=== PATIENT | female | born 1990 | race Caucasian/White ===

== ENCOUNTER 2018-05-12 04:03 | Emergency (ER) | payer BC, OTHER ==
[2018-05-12] MEDS ORDERED: IPRATROPIUM-ALBUTEROL 3 ML NEB INHALATION STA (04:18)
--- NOTE | 2018-05-12 04:29 | ED ---
SOB HPI - General Chief Complaint: Shortness of Breath Stated Complaint: SAJAN Time Seen by Provider: 05/12/18 04:17 Source: patient Mode of arrival: ambulatory Limitations: no limitations - History of Present Illness Initial Comments: is a 27-year-old female with a history of asthma who presents to the ER today for evaluation of wheezing and difficulty breathing. Patient reports she' s had nonproductive wheezy cough for approximately 2 days however throughout the night tonight it became progressively worse. Patient states that she currently does not have any medical insurance or income and was concerned about her ability to pay so she tried to stay home and cuff out the wheezing however this morning she began to feel significantly worse and decided to come to the ER. Patient reports she has not had a significant asthma exacerbation for quite some time, she has been seen in an urgent care once in the past year but other than that hasn't had bad asthma since she was a child. She does report that upon moving into her new house 2 years ago she was cleaning her oven and inhaled significant amount of 11 photo mask cleaner which caused a severe reaction and she feels that since that time she has had worse reactive airway problems than before she has a current cigarette smoker. She reports that she used to be a heavier smoker but is now on Wellbutrin and has decreased her smoking only to sick or today. She is not on any estrogen. She is no risk factors for DVT or PE. - Related Data Home Medications Medication Instructions Recorded Confirmed Loratadine [Claritin] 10 mg PO DAILY 05/13/16 05/13/16 guaiFENesin [Mucinex] 600 mg PO Q12H PRN 05/13/16 05/13/16 Previous Rx's Medication Instructions Recorded Sulfamethox-Tmp 800-160Mg [Bactrim 1 each PO Q12HR #20 tab 05/13/16 DS 800-160 mg] Albuterol Inhaler [Ventolin Hfa 1 - 2 puff INHALATION RT-Q6H PRN 05/12/18 Inhaler] #1 inhaler Allergies Allergy/AdvReac Type Severity Reaction Status Date / Time mold AdvReac Itching Verified 05/12/18 04:15 pollen extracts AdvReac Itching Verified 05/12/18 04:15 Review of Systems ROS Statement: Those systems with pertinent positive or pertinent negative responses have been documented in the HPI. ROS Other: All systems not noted in ROS Statement are negative. Past Medical History Past Medical History: Asthma, Fibromyalgia History of Any Multi-Drug Resistant Organisms: None Reported Past Surgical History: Tonsillectomy Past Psychological History: Depression Smoking Status: Current every day smoker Past Alcohol Use History: Occasional Past Drug Use History: Marijuana General Exam - General Exam Comments Initial Comments: Physical Exam GENERAL: Moderate respiratory distress HENT: Normocephalic, Atraumatic. EYES: PERRL, EOMI PULMONARY: Wheezing in all lung arias CARDIOVASCULAR: Tachycardic, regular, warm and well perfused extremities ABDOMEN: Soft and nontender with normal bowel sounds. SKIN: Skin is clear with no lesions or rashes and otherwise unremarkable. : Deferred NEUROLOGIC: Patient is alert and oriented x3. Moving all extremities spontaneously MUSCULOSKELETAL: Normal extremities with adequate strength and full range of motion. No lower extremity swelling or edema. No calf tenderness. PSYCHIATRIC: Normal psychiatric evaluation. Limitations: no limitations Limitations: no limitations Course Vital Signs 05/12/18 05/12/18 05/12/18 04:11 04:23 04:32 Temperature 98.6 F Pulse Rate 112 H 99 Respiratory 20 24 Rate Blood Pressure 119/86 O2 Sat by Pulse 92 L Oximetry 05/12/18 04:37 Temperature Pulse Rate 106 H Respiratory Rate Blood Pressure O2 Sat by Pulse Oximetry Medical Decision Making - Medical Decision Making She was seen and evaluated upon arrival patient was noted to be in moderate respiratory distress with wheezing in all lung arias consistent with asthma exacerbation DuoNeb was ordered Patient with a nonproductive cough, no fever, no concerns for pneumonia Patient received a DuoNeb Patient was reevaluated after DuoNeb, oxygen saturation is 99% on room air, heart rate is 81, patient is in no respiratory distress at this time the patient 's comfortable with the plan for discharge home I discussed with the patient the importance of smoking cessation. Return parameters were discussed all questions pertaining care were answered and patient was discharged home with a prescription for an albuterol MDI inhaler and follow-up with her primary care physician. Disposition Clinical Impression: Asthma with exacerbation Disposition: HOME SELF-CARE Condition: Stable Instructions: Asthma (ED) Prescriptions: Albuterol Inhaler [Ventolin Hfa Inhaler] 1 - 2 puff INHALATION RT-Q6H PRN #1 inhaler PRN Reason: Wheezing Is patient prescribed a controlled substance at d/c from ED?: No Referrals: None,Stated [Primary Care Provider] - 1-2 days
[2018-05-12 05:49] VITALS: BP 118/77; PULSE 74; RESP 19; TEMP 98.1
== END 2018-05-12 05:44 | disposition home or self-care (01) ==
LOC: EC 04:03
DX: J45.901 Unspecified asthma with (acute) exacerbation (principal); R00.0 Tachycardia, unspecified; F32.9 Major depressive disorder, single episode, unspecified; F17.210 Nicotine dependence, cigarettes, uncomplicated; Z91.048 Other nonmedicinal substance allergy status; Z79.899 Other long term (current) drug therapy
CPT/HCPCS: 94640; 99284

== ENCOUNTER 2018-07-08 19:21 | Emergency (ER) | payer OTHER ==
[2018-07-08] MEDS ORDERED: ALBUTEROL NEBULIZED 2.5 MG/3 ML INHALATION STA (19:38)
[2018-07-08] MEDS ORDERED: DEXAMETHASONE SOD PHOSPHATE 10 MG/ML 1 ML VIAL IM STA (19:38)
[2018-07-08] MEDS ORDERED: IPRATROPIUM 0.5 MG/2.5 ML NEBU INHALATION STA (19:38)
--- NOTE | 2018-07-08 19:43 | ED ---
General Adult HPI - General Chief complaint: Shortness of Breath Stated complaint: Asthma attack Time Seen by Provider: 07/08/18 19:37 Source: patient, RN notes reviewed, old records reviewed Mode of arrival: ambulatory Limitations: no limitations - History of Present Illness Initial comments: 27-year-old female presenting for evaluation of cough and dyspnea. Patient has history of asthma, states her symptoms are similar to asthma exacerbation in the past. Patient is a current smoker although she states she quit 2 days prior. She believes her worsening dyspnea is related to smoking cessation. Denies fever or chills. Cough productive of white sputum. No abdominal pain, nausea vomiting. No lower extremity pain or swelling. No history DVT or PE. Patient has had ER visits for asthma in the past, no hospitalization, no intubation. - Related Data Previous Rx's Medication Instructions Recorded Albuterol Inhaler [Ventolin Hfa 1 - 2 puff INHALATION RT-Q6H PRN 05/12/18 Inhaler] #1 inhaler Albuterol Inhaler [Ventolin Hfa 1 - 2 puff INHALATION Q4HR PRN #1 07/08/18 Inhaler] inhaler predniSONE 50 mg PO DAILY #5 tab 07/08/18 Allergies Allergy/AdvReac Type Severity Reaction Status Date / Time mold AdvReac Itching Verified 07/08/18 20:09 pollen extracts AdvReac Itching Verified 07/08/18 20:09 Review of Systems ROS Statement: Those systems with pertinent positive or pertinent negative responses have been documented in the HPI. ROS Other: All systems not noted in ROS Statement are negative. Past Medical History Past Medical History: Asthma, Fibromyalgia History of Any Multi-Drug Resistant Organisms: None Reported Past Surgical History: Tonsillectomy Past Psychological History: Depression Smoking Status: Current every day smoker Past Alcohol Use History: Occasional Past Drug Use History: Marijuana General Exam Limitations: no limitations General appearance: alert, in no apparent distress Head exam: Present: atraumatic, normocephalic Eye exam: Present: normal appearance, PERRL ENT exam: Present: normal exam Neck exam: Present: normal inspection. Absent: tenderness, meningismus Respiratory exam: Present: respiratory distress, wheezes, decreased breath sounds, prolonged expiratory Cardiovascular Exam: Present: regular rate, normal rhythm GI/Abdominal exam: Present: soft. Absent: distended, tenderness Extremities exam: Present: normal inspection, normal capillary refill. Absent: pedal edema, calf tenderness Neurological exam: Present: alert, oriented X3, CN II-XII intact. Absent: motor sensory deficit Skin exam: Present: warm, dry, intact. Absent: cyanosis, diaphoretic Course Vital Signs 07/08/18 07/08/18 07/08/18 19:27 19:38 19:43 Temperature 98.3 F Pulse Rate 93 92 Respiratory 22 24 Rate Blood Pressure 121/81 O2 Sat by Pulse 97 Oximetry 07/08/18 07/08/18 20:06 20:32 Temperature Pulse Rate 98 84 Respiratory 18 Rate Blood Pressure 99/62 O2 Sat by Pulse 96 Oximetry EKG Findings - EKG Comments: EKG Findings:: EKG: Normal sinus rhythm, possible left atrial enlargement, prolonged QT 496, no ST segment elevation, no definitive signs of ischemia ventricular rate of 89, IN interval 132, QRS duration 84, QTC 496 Medical Decision Making - Medical Decision Making 27-year-old history of asthma presents with worsening cough and dyspnea. Patient is currently quitting smoking. She does admit to running out of her albuterol yesterday. Given albuterol, Atrovent, steroids in the emergency department on reevaluation she is feeling much better, she has improved air entry, scattered wheezing. No respiratory distress. She'll be given steroids and refill of her albuterol prescription. Return with worsening or changing symptoms. Disposition Clinical Impression: Asthma with exacerbation Disposition: HOME SELF-CARE Condition: Good Instructions (If sedation given, give patient instructions): Asthma (ED) Prescriptions: Albuterol Inhaler [Ventolin Hfa Inhaler] 1 - 2 puff INHALATION Q4HR PRN #1 inhaler PRN Reason: Shortness Of Breath predniSONE 50 mg PO DAILY #5 tab Is patient prescribed a controlled substance at d/c from ED?: No Referrals: Anuel Mittal MD [Primary Care Provider] - 1-2 days Time of Disposition: 20:55
--- NOTE | 2018-07-08 20:41 | XR ---
EXAMINATION TYPE: XR chest 2V DATE OF EXAM: 07/08/2018 COMPARISON: 05/13/2016 HISTORY: Difficulty breathing TECHNIQUE: Frontal and lateral views of the chest are obtained. FINDINGS: Heart and mediastinum are normal. Lungs are clear. Diaphragm is normal. Bony thorax appear s normal. IMPRESSION: Normal chest. No change.
[2018-07-08 21:26] VITALS: BP 105/63; PULSE 101; RESP 19; TEMP 97.9
== END 2018-07-08 21:25 | disposition home or self-care (01) ==
LOC: EC 19:21
DX: J45.901 Unspecified asthma with (acute) exacerbation (principal); Z76.0 Encounter for issue of repeat prescription; Z91.018 Allergy to other foods; Z87.891 Personal history of nicotine dependence
CPT/HCPCS: 94640; 93005; 71046; 99285; 96372; J1100

== ENCOUNTER → 2019-08-07 | Outpatient (CLI) | payer OTHER ==
--- NOTE | 2019-08-08 06:56 | US ---
EXAMINATION TYPE: US transvaginal DATE OF EXAM: 08/07/2019 COMPARISON: CT 07/24/2010 CLINICAL HISTORY: N92.0 Menorrhagia. TECHNIQUE: . Transvaginal sonographic images of the pelvis were acquired. Date of LMP: Patient states she has been bleeding for 27 days EXAM MEASUREMENTS: Uterus: 4.7 x 2.6 x 3.4 cm Endometrial Stripe: 0.7 cm Right Ovary: 4.7 x 2.0 x 3.3 cm Left Ovary: 4.2 x 1.9 x 2.9 cm 1. Uterus: Anteverted wnl 2. Endometrium: wnl 3. Right Ovary: Multiple follicles visualized 4. Left Ovary: Multiple follicles visualized 5. Bilateral Adnexa: wnl 6. Posterior cul-de-sac: wnl Follicles appearing peripherally oriented with maximum number of 11 follicles counted on a single binta ge. IMPRESSION: Peripherally oriented numerous bilateral follicles. Findings can be seen in polycystic ov harper syndrome or may be physiologic. Correlation with clinical exam and serum laboratory values is r ecommended.
== END | disposition home or self-care (01) ==
LOC: RADUSWWP 15:29
PROVIDERS: ATTEND Family Medicine
DX: N92.0 Excessive and frequent menstruation with regular cycle (principal)
CPT/HCPCS: 76830

== ENCOUNTER 2020-03-31 12:03 | Emergency (ER) | payer OTHER ==
[2020-03-31 12:14] VITALS: BP 100/67; TEMP 98
[2020-03-31] MEDS ORDERED: ALBUTEROL NEBULIZED 2.5 MG/3 ML INHALATION STA (12:30)
[2020-03-31] MEDS ORDERED: IPRATROPIUM 0.5 MG/2.5 ML NEBU INHALATION STA (12:30)
[2020-03-31] MEDS ORDERED: DEXAMETHASONE SOD PHOSPHATE 10 MG/ML 1 ML VIAL IM STA (12:30)
[2020-03-31 12:48] VITALS: RESP 22
--- NOTE | 2020-03-31 13:02 | ED ---
Asthma HPI - General Chief Complaint: Shortness of Breath Stated Complaint: asthma attack Time Seen by Provider: 03/31/20 12:29 Source: patient, RN notes reviewed, old records reviewed Mode of arrival: ambulatory Limitations: no limitations - History of Present Illness Initial Comments: This is a 29-year-old female DF for evaluation patient Dese for evaluation regards to severe shortness breath. Patient has history of asthma, no current pain. Nursing travel history or sick contacts. 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 which she may have been exposed to some sort of fumes of some sort and began having difficulty breathing MD Complaint: "asthma attack", shortness of breath, wheezing -: hour(s) Asthma History: history of frequent attacks Severity: moderate, similar to prior Context: allergen exposure, pet exposure, smoke exposure Associated Symptoms: dry cough Treatments Prior to Arrival: other (None) - Related Data Previous Rx's Medication Instructions Recorded Albuterol Inhaler (Mhu) [Ventolin 1 - 2 puff INHALATION RT-Q6H PRN 05/12/18 Hfa Inhaler (Mhu)] #1 inhaler Albuterol Inhaler (Mhu) [Ventolin 1 - 2 puff INHALATION Q4HR PRN #1 07/08/18 Hfa Inhaler (Mhu)] inhaler predniSONE 50 mg PO DAILY #5 tab 07/08/18 Albuterol Nebulized [Ventolin 2.5 mg INHALATION Q4H PRN #25 nebu 03/31/20 Nebulized] Albuterol Sulfate [Proair Hfa] 1 - 2 puff INHALATION Q4H PRN #1 03/31/20 inhaler predniSONE 50 mg PO DAILY #5 tab 03/31/20 Allergies Allergy/AdvReac Type Severity Reaction Status Date / Time mold AdvReac Itching Verified 03/31/20 12:14 pollen extracts AdvReac Itching Verified 03/31/20 12:14 Review of Systems ROS Statement: Those systems with pertinent positive or pertinent negative responses have been documented in the HPI. ROS Other: All systems not noted in ROS Statement are negative. Past Medical History Past Medical History: Asthma, Fibromyalgia History of Any Multi-Drug Resistant Organisms: None Reported Past Surgical History: Tonsillectomy Past Psychological History: Depression Smoking Status: Former smoker Past Alcohol Use History: Occasional Past Drug Use History: Marijuana General Exam Limitations: no limitations General appearance: alert, in no apparent distress, anxious Head exam: Present: atraumatic, normocephalic, normal inspection Eye exam: Present: normal appearance, PERRL, EOMI. Absent: scleral icterus, conjunctival injection, periorbital swelling ENT exam: Present: normal exam, mucous membranes moist Neck exam: Present: normal inspection. Absent: tenderness, meningismus, lymphadenopathy Respiratory exam: Present: wheezes, decreased breath sounds, prolonged expiratory. Absent: respiratory distress, rales, rhonchi, stridor Cardiovascular Exam: Present: regular rate, normal rhythm, normal heart sounds. Absent: systolic murmur, diastolic murmur, rubs, gallop, clicks GI/Abdominal exam: Present: soft, normal bowel sounds. Absent: distended, tenderness, guarding, rebound, rigid Extremities exam: Present: normal inspection, full ROM, normal capillary refill. Absent: tenderness, pedal edema, joint swelling, calf tenderness Back exam: Present: normal inspection Neurological exam: Present: alert, oriented X3, CN II-XII intact Psychiatric exam: Present: normal affect, normal mood Skin exam: Present: warm, dry, intact, normal color. Absent: rash Course Vital Signs 03/31/20 03/31/20 03/31/20 12:11 12:47 13:03 Temperature 98 F Pulse Rate 79 84 88 Respiratory 18 22 Rate Blood Pressure 100/67 O2 Sat by Pulse 98 Oximetry - Reevaluation(s) Reevaluation #1: 03/31/20 13:42 Medical records reviewed Reevaluation #2: 03/31/20 13:42 On reevaluation patient symptoms are significantly improved Reevaluation #3: 03/31/20 13:42 Patient informed of results, will give refills patient can be discharged Medical Decision Making - Medical Decision Making 29 female DF for evaluation presented today for evaluation regards to severe shortness of breath asthma attack secondary to exposure. At this time patient can be discharged home Disposition Clinical Impression: Asthma with acute exacerbation Disposition: HOME SELF-CARE Condition: Good Instructions (If sedation given, give patient instructions): Asthma (ED) Prescriptions: predniSONE 50 mg PO DAILY #5 tab Albuterol Sulfate [Proair Hfa] 1 - 2 puff INHALATION Q4H PRN #1 inhaler PRN Reason: Shortness Of Breath Albuterol Nebulized [Ventolin Nebulized] 2.5 mg INHALATION Q4H PRN #25 nebu PRN Reason: Shortness Of Breath Is patient prescribed a controlled substance at d/c from ED?: No Referrals: Aunel Mittal MD [Primary Care Provider] - 1-2 days
[2020-03-31] MEDS ORDERED: IPRATROPIUM-ALBUTEROL 3 ML NEB INHALATION STA (13:36)
[2020-03-31 14:33] VITALS: PULSE 86
== END 2020-03-31 14:44 | disposition home or self-care (01) ==
LOC: EC 12:03
DX: J45.901 Unspecified asthma with (acute) exacerbation (principal); Z91.048 Other nonmedicinal substance allergy status
CPT/HCPCS: 94640 ×2; 99283; 96372; J1100

== ENCOUNTER 2020-06-11 00:47 | Inpatient (IN) | payer MEDICAID, OTHER ==
--- NOTE | 2020-06-11 01:21 | ED ---
Psych HPI - General Chief Complaint: Psychiatric Symptoms Stated Complaint: Mental health Time Seen by Provider: 06/11/20 01:20 Source: patient, RN notes reviewed, old records reviewed Mode of arrival: ambulatory Limitations: no limitations - History of Present Illness Initial Comments: This is a 29-year-old female who admits to severe suicidal ideation and depression. Denying current drug or alcohol abuse. Patient states she is does want to kill herself MD Complaint: suicidal ideation, feels depressed -: days(s) Associated Psychiatric Symptoms: depression, suicidal ideation History of same: Yes Quality: constant Improves With: none, medication Associated Symptoms: denies other symptoms Treatments Prior to Arrival: placed on mental health hold - Related Data Previous Rx's Medication Instructions Recorded Albuterol Inhaler (Mhu) [Ventolin 1 - 2 puff INHALATION RT-Q6H PRN 05/12/18 Hfa Inhaler (Mhu)] #1 inhaler Albuterol Inhaler (Mhu) [Ventolin 1 - 2 puff INHALATION Q4HR PRN #1 07/08/18 Hfa Inhaler (Mhu)] inhaler predniSONE 50 mg PO DAILY #5 tab 07/08/18 Albuterol Nebulized [Ventolin 2.5 mg INHALATION Q4H PRN #25 nebu 03/31/20 Nebulized] Albuterol Sulfate [Proair Hfa] 1 - 2 puff INHALATION Q4H PRN #1 03/31/20 inhaler predniSONE 50 mg PO DAILY #5 tab 03/31/20 Allergies Allergy/AdvReac Type Severity Reaction Status Date / Time mold AdvReac Itching Verified 06/11/20 00:55 pollen extracts AdvReac Itching Verified 06/11/20 00:55 Review of Systems ROS Statement: Those systems with pertinent positive or pertinent negative responses have been documented in the HPI. ROS Other: All systems not noted in ROS Statement are negative. Past Medical History Past Medical History: Asthma, Fibromyalgia History of Any Multi-Drug Resistant Organisms: None Reported Past Surgical History: Tonsillectomy Past Psychological History: Depression Smoking Status: Former smoker, Second hand smoke exposure Past Alcohol Use History: Occasional Past Drug Use History: Marijuana General Exam Limitations: no limitations General appearance: alert, in no apparent distress Head exam: Present: atraumatic, normocephalic, normal inspection Eye exam: Present: normal appearance, PERRL, EOMI. Absent: scleral icterus, conjunctival injection, periorbital swelling ENT exam: Present: normal exam, mucous membranes moist Neck exam: Present: normal inspection. Absent: tenderness, meningismus, lymphadenopathy Respiratory exam: Present: normal lung sounds bilaterally. Absent: respiratory distress, wheezes, rales, rhonchi, stridor Cardiovascular Exam: Present: regular rate, normal rhythm, normal heart sounds. Absent: systolic murmur, diastolic murmur, rubs, gallop, clicks GI/Abdominal exam: Present: soft, normal bowel sounds. Absent: distended, tenderness, guarding, rebound, rigid Extremities exam: Present: normal inspection, full ROM, normal capillary refill. Absent: tenderness, pedal edema, joint swelling, calf tenderness Back exam: Present: normal inspection Neurological exam: Present: alert, oriented X3, CN II-XII intact Psychiatric exam: Present: normal affect, normal mood Skin exam: Present: warm, dry, intact, normal color. Absent: rash Course Vital Signs 06/11/20 06/11/20 00:50 03:00 Temperature 98.4 F Pulse Rate 99 88 Respiratory 18 18 Rate Blood Pressure 136/84 110/74 O2 Sat by Pulse 99 98 Oximetry - Reevaluation(s) Reevaluation #1: 06/11/20 01:21 Medical records reviewed Reevaluation #2: 06/11/20 04:39 Medical clear for psychiatric evaluation Medical Decision Making - Medical Decision Making 79 female seen in [facility] here in the emergency department, patient will be admitted for psychiatric evaluation and treatment - Lab Data Lab Results 06/11/20 06/11/20 Range/Units 02:11 03:05 Urine Opiates Screen Not Detected (NotDetected) Ur Oxycodone Screen Not Detected (NotDetected) Urine Methadone Screen Not Detected (NotDetected) Ur Propoxyphene Screen Not Detected (NotDetected) Ur Barbiturates Screen Not Detected (NotDetected) U Tricyclic Antidepress Not Detected (NotDetected) Ur Phencyclidine Scrn Not Detected (NotDetected) Ur Amphetamines Screen Not Detected (NotDetected) U Methamphetamines Scrn Not Detected (NotDetected) U Benzodiazepines Scrn Not Detected (NotDetected) Urine Cocaine Screen Not Detected (NotDetected) U Marijuana (THC) Screen Detected H (NotDetected) Coronavirus (PCR) Not Detected (Not Detectd) Disposition Clinical Impression: Acute psychosis, Depression, Suicidal ideation Disposition: TRANSFER TO PSYCH HOSP/UNIT Condition: Fair Is patient prescribed a controlled substance at d/c from ED?: No
[2020-06-11 02:42] LABS: Amphetamine Screen,Urine Not Detected (NotDetected); Barbiturate Screen,Urine Not Detected (NotDetected); Benzodiazepines Screen,Urine Not Detected (NotDetected); Cocaine Screen,Urine Not Detected (NotDetected); Methadone Screen, Urine Not Detected (NotDetected); Opiate Screen,Urine Not Detected (NotDetected); Oxycodone Screen, Urine Not Detected (NotDetected); Phencyclidine Screen,Urine Not Detected (NotDetected); Tricyclic Antidepressant,Urine Not Detected (NotDetected); Urn Cannabinoid Scrn Detected (NotDetected)
[2020-06-11] MEDS ORDERED: MAG HYDROX/AL HYDROX/SIMETH 30 ML CUP PO PRN (05:25)
[2020-06-11] MEDS ORDERED: MAGNESIUM HYDROXIDE 2,400 MG/10 ML CUP PO PRN (05:25)
[2020-06-11] MEDS ORDERED: ACETAMINOPHEN TAB 325 MG TAB PO PRN (05:25)
[2020-06-11] MEDS ORDERED: LORazepam 1 MG TAB PO PRN (05:25)
[2020-06-11] MEDS ORDERED: ALBUTEROL INHALER 60 PUFF/8 GM INHALER (MHU) INHALATION PRN (05:31)
[2020-06-11] MEDS ORDERED: LORazepam 2 MG/ML INJ IM PRN (05:32)
[2020-06-11] MEDS ORDERED: HALOPERIDOL LACTATE 5 MG/ML 1 ML VIAL IM PRN (05:33)
[2020-06-11] MEDS ORDERED: haloperidoL 5 MG TAB PO PRN (05:33)
[2020-06-11 08:11] LABS: ALT 13 U/L (4-34); AST 18 U/L (14-36); African American GFR (CKD) >90 (>60 ml/min/1.73 sqM); Albumin 4.6 g/dL (3.5-5.0); Alkaline Phosphatase 48 U/L (38-126); Anion Gap 6 mmol/L; Bilirubin, Delta 0.2 mg/dL (0.0-0.2); Bilirubin,Unconjugated 0.1 mg/dL (0.0-1.1); Blood Urea Nitrogen 15 mg/dL (7-17); Calcium 10.1 mg/dL (8.4-10.2); Carbon Dioxide 30 mmol/L (22-30); Chloride 104 mmol/L (98-107); Cholesterol 171 mg/dL (<200); Glucose 101 mg/dL (74-99); HDL Cholesterol 41 mg/dL (40-60); LDL Cholesterol,Calculated 112 mg/dL (0-99); Non-African American GFR(CKD) >90 (>60 ml/min/1.73 sqM); Potassium 4.8 mmol/L (3.5-5.1); Sodium 140 mmol/L (137-145); Total Bilirubin 0.3 mg/dL (0.2-1.3); Total Protein 7.3 g/dL (6.3-8.2); Triglycerides 89 mg/dL (<150)
[2020-06-11 08:34] LABS: Basophils # (A) 0.1 k/uL (0-0.2); Basophils % (A) 0 %; Eosinophils # (A) 0.4 k/uL (0-0.7); Eosinophils % (A) 3 %; HCT 45.6 % (34.0-46.0); HGB 15.1 gm/dL (11.4-16.0); Lymphocytes # (A) 3.7 k/uL (1.0-4.8); Lymphocytes % (A) 29 %; MCHC 33.1 g/dL (31.0-37.0); MCV 96.5 fL (80.0-100.0); Mean Platelet Volume 8.8; Monocytes # (A) 0.5 k/uL (0-1.0); Monocytes % (A) 4 %; Neutrophils # (A) 7.9 k/uL (1.3-7.7); Neutrophils % (A) 62 %; Platelet Count 252 k/uL (150-450); RBC 4.73 m/uL (3.80-5.40); RDW 12.1 % (11.5-15.5); WBC 12.6 k/uL (3.8-10.6)
[2020-06-11] MEDS: NICOTINE 14MG/24HR PATCH TRANSDERM SCH (08:52)
[2020-06-11 09:01] LABS: Appearance,Urine Turbid (Clear); Bacteria,Urine Occasional /hpf; Bilirubin,Urine Negative (Negative); Blood,Urine Small (Negative); Color,Urine Yellow; Glucose,Urine (UA) Negative (Negative); Ketones,Urine Negative (Negative); Leukocyte Esterase,Urine Large (Negative); Mucus,Urine Many /hpf; Nitrite,Urine Negative (Negative); PH, Urine 5.5 (5.0-8.0); Protein,Urine 1+ (Negative); RBC,Urine 17 /hpf (0-5); Specific Gravity,Urine 1.031 (1.001-1.035); Squamous Epithelial Cell,Urine 115 /hpf (0-4); Urobilinogen,Urine <2.0 mg/dL (<2.0); WBC,Urine 21 /hpf (0-5)
[2020-06-11 10:13] VITALS: BMI 23.3
[2020-06-11] MEDS ORDERED: VENLAFAXINE HCL ER 75 MG CAP PO STA (10:53)
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
[2020-06-11] MEDS: hydrOXYzine pamoate 25 MG CAP PO SCH (21:16)
[2020-06-12 06:46] VITALS: RESP 16
[2020-06-12] MEDS: NICOTINE 14MG/24HR PATCH TRANSDERM SCH (08:50)
[2020-06-12] MEDS ORDERED: VENLAFAXINE HCL ER 75 MG CAP PO SCH (09:00)
[2020-06-12] MEDS ORDERED: VENLAFAXINE HCL ER 75 MG CAP PO STA (09:17)
--- NOTE | 2020-06-12 09:40 | P.PN ---
Progress Note - Text Progress Note Date: 06/12/20 Interval History: Patient was seen wandering the hallways and was directable and agreeable to speak with flex o writer operator in the office. Patient expresses that he is feeling better. He continues to endorse chronic suicidal ideation and reported plans on admission but states that these thoughts are fleeting and that the plans would likely not work or that he would not want to go through with them out of fear of pain. The patient is not endorsing any homicidal ideation, intention, and/or plan. He has been adherent with his medications and not reporting any significant side effects at this time. The patient is not reporting any auditory or visual hallucinations. He denies any paranoia or delusions. He continues endorse multiple life stressors that are causing him significant anxiety. The patient as per to clearly concerned about his housing situation as well as the summons for unpaid student tuition. The patient reports that the Vistaril has been very beneficial but is not certain if there has been any benefit from the Effexor yet. Mental Status Exam: General Appearance: Patient appears to be stated age is alert, directable, and attempts to cooperate. Hygiene and grooming appear fair. Patient has hirsutism and facial hair. Patient is not on hormone replacement therapy and has facial hair due to PCOS that is untreated. Behavior: Patient is seated without any agitated behavior. The patient sits cross legged on the chair. Speech: Patient's speech is fluent and nonpressured. Less hyperverbal today. Mood/Affect: Patient reports their mood is slightly anxious, affect is congruent with appropriate range. Suicidality/Homicidality: Patient denies having any homicidal ideation intent or plan. Patient reports chronic suicidal ideation but no intention or plan at this time. Perceptions: Patient denies any visual hallucinations and denies any auditory h allucinations Though content/process: There is no evidence of any delusional thought content and thought process is linear and goal-directed. Memory and concentration: AOX3, grossly intact for the purposes of this session. Can spell "WORLD" backwards Judgment and insight: Fair Assessment Major depressive disorder, recurrent Posttraumatic stress disorder Gender dysphoria Autism spectrum disorder Cannabis dependence Plan: -Patient continues to meet criteria for inpatient psychiatric admission for symptom stabilization and safety. Patient has signed adult voluntary form and medication consent and was placed in patient's chart. -Medications: Increase Effexor XR to 150 mg by mouth every morning for depression/PTSD Vistaril 50 mg by mouth at bedtime for insomnia -When necessary Ativan and Haldol for agitation/aggression. -NRT - nicotine patch -SW on board for discharge planning. Encouraged the patient to participate in milieu.
[2020-06-12] MEDS: hydrOXYzine pamoate 25 MG CAP PO SCH (21:05)
[2020-06-13 07:09] VITALS: BP 100/63; PULSE 67
[2020-06-13] MEDS: NICOTINE 14MG/24HR PATCH TRANSDERM SCH (08:46)
[2020-06-13] MEDS ORDERED: VENLAFAXINE HCL ER 150 MG CAP PO SCH (09:00)
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
[2020-06-13] MEDS ORDERED: diphenhydrAMINE 50 MG CAP PO STA (11:26)
[2020-06-13 13:19] VITALS: TEMP 97.9
== END 2020-06-13 14:47 | disposition home or self-care (01) | DRG 885 ==
LOC: EC 00:47 → 3MHU 04:35
PROVIDERS: ADMIT Psychiatry & Neurology Psychiatry; ATTEND Psychiatry & Neurology Psychiatry
DX: F33.9 Major depressive disorder, recurrent, unspecified (principal); R45.851 Suicidal ideations; F17.200 Nicotine dependence, unspecified, uncomplicated; F43.10 Post-traumatic stress disorder, unspecified; M79.7 Fibromyalgia; Z62.810 Personal history of physical and sexual abuse in childhood; F84.0 Autistic disorder; Z20.828 Contact with and (suspected) exposure to other viral communicable diseases; J45.909 Unspecified asthma, uncomplicated; F12.20 Cannabis dependence, uncomplicated; F64.9 Gender identity disorder, unspecified; L68.0 Hirsutism; G47.00 Insomnia, unspecified; Z91.09 Other allergy status, other than to drugs and biological substances; Z90.49 Acquired absence of other specified parts of digestive tract; Z59.9 Problem related to housing and economic circumstances, unspecified; Z91.410 Personal history of adult physical and sexual abuse; Z91.5 Personal history of self-harm; Z86.59 Personal history of other mental and behavioral disorders
CPT/HCPCS: 80053; 80061; 80306; 81001; 81025; 82075; 82248; 83036; 84443; 85025; 87635; 99285

== ENCOUNTER 2020-10-03 17:31 | Emergency (ER) | payer OTHER ==
[2020-10-03] MEDS ORDERED: IPRATROPIUM-ALBUTEROL 3 ML NEB INHALATION STA (17:54)
--- NOTE | 2020-10-03 18:48 | ED ---
SOB HPI - General Chief Complaint: Shortness of Breath Stated Complaint: Asthma Attack Time Seen by Provider: 10/03/20 17:44 Source: patient, RN notes reviewed Mode of arrival: ambulatory Limitations: no limitations - History of Present Illness Initial Comments: Patient is a 29-year-old female presents to emergency department complaining of asthma attack. She states that she ran out of her inhalers last night during an asthma attack and went to her friend's house where she has a cat that she is ALLERGIC to and noted that the wheezing got worse. She was sitting up in bed in no apparent distress or pain stating that she can feel of a tightness between her shoulder blades starting happen. She was in no other apparent distress or pain while sitting up in bed during the exam interview. She denied any chest pain headache nausea vomiting diarrhea constipation fever fatigue chills. - Related Data Previous Rx's Medication Instructions Recorded Albuterol Inhaler (Mhu) [Ventolin 1 - 2 puff INHALATION Q4HR PRN #1 07/08/18 Hfa Inhaler (Mhu)] inhaler Albuterol Nebulized [Ventolin 2.5 mg INHALATION Q4H PRN #25 nebu 03/31/20 Nebulized] Albuterol Sulfate [Proair Hfa] 1 - 2 puff INHALATION Q4H PRN 30 06/13/20 Days #1 inhaler Nicotine 14Mg/24Hr Patch [Habitrol] 1 patch TRANSDERM DAILY 30 Days 06/13/20 patch Venlafaxine HCl ER [Effexor XR] 150 mg PO DAILY 30 Days cap.er.24h 06/13/20 hydrOXYzine pamoate [Vistaril] 50 mg PO HS 30 Days cap 06/13/20 Allergies Allergy/AdvReac Type Severity Reaction Status Date / Time mold AdvReac Itching Verified 10/03/20 17:34 pollen extracts AdvReac Itching Verified 10/03/20 17:34 Review of Systems ROS Statement: Those systems with pertinent positive or pertinent negative responses have been documented in the HPI. ROS Other: All systems not noted in ROS Statement are negative. Past Medical History Past Medical History: Asthma, Fibromyalgia History of Any Multi-Drug Resistant Organisms: None Reported Past Surgical History: Tonsillectomy Past Psychological History: Depression Smoking Status: Former smoker, Second hand smoke exposure Past Alcohol Use History: Occasional Past Drug Use History: Marijuana General Exam Limitations: no limitations General appearance: alert, in no apparent distress Head exam: Present: atraumatic, normocephalic, normal inspection Eye exam: Present: normal appearance, PERRL, EOMI. Absent: scleral icterus, conjunctival injection, periorbital swelling Neck exam: Present: normal inspection. Absent: tenderness, meningismus, lymphadenopathy Respiratory exam: Present: normal lung sounds bilaterally, wheezes (Bilaterally and middle and lower lobes). Absent: respiratory distress, rales, rhonchi, stridor Cardiovascular Exam: Present: regular rate, normal rhythm, normal heart sounds. Absent: systolic murmur, diastolic murmur, rubs, gallop, clicks GI/Abdominal exam: Present: soft, normal bowel sounds. Absent: distended, tenderness, guarding, rebound, rigid Extremities exam: Present: normal inspection, full ROM, normal capillary refill. Absent: tenderness, pedal edema, joint swelling, calf tenderness Neurological exam: Present: alert, oriented X3, CN II-XII intact Psychiatric exam: Present: normal affect, normal mood Skin exam: Present: warm, dry, intact, normal color. Absent: rash Course Vital Signs 10/03/20 10/03/20 10/03/20 17:32 17:40 19:00 Temperature 98.1 F 98.8 F Pulse Rate 93 80 Respiratory 18 20 16 Rate Blood Pressure 124/79 100/84 O2 Sat by Pulse 100 100 Oximetry 10/03/20 19:12 Temperature Pulse Rate 80 Respiratory Rate Blood Pressure O2 Sat by Pulse Oximetry Medical Decision Making - Medical Decision Making 9-year-old female complaining of asthma attack. 3 mL of DuoNeb, chest x-ray ordered. chest x-ray negative for any acute cardiopulmonary process. Case discussed with Dr. Lee, patient can discharge home. - Radiology Data Radiology results: report reviewed, image reviewed Chest x-ray: No acute cardiopulmonary process. Disposition Clinical Impression: Asthma Disposition: HOME SELF-CARE Condition: Stable Instructions (If sedation given, give patient instructions): Asthma (ED) Additional Instructions: Please return to the Emergency Department if symptoms worsen or any other concerns. Follow-up with primary care in 1-2 days to refill prescriptions for inhalers. Avoid irritants that can cause ALLERGY flareups. Is patient prescribed a controlled substance at d/c from ED?: No Referrals: Anuel Mittal MD [Primary Care Provider] - 1-2 days Time of Disposition: 19:30
[2020-10-03 19:02] VITALS: BP 100/84; PULSE 80; RESP 16; TEMP 98.8
--- NOTE | 2020-10-03 19:25 | XR ---
EXAMINATION TYPE: XR chest 1V portable DATE OF EXAM: 10/03/2020 CLINICAL HISTORY: Shortness of breath. TECHNIQUE: Portable frontal view of the chest. COMPARISON: 07/08/2018 FINDINGS: The cardiomediastinal silhouette is within normal limits for size. Pulmonary vasculature i s normal. There is no focal air space opacity. No pleural effusion. No pneumothorax seen. No acute d isplaced osseous fracture. IMPRESSION: No acute cardiopulmonary process.
== END 2020-10-03 19:46 | disposition home or self-care (01) ==
LOC: EC 17:31
DX: J45.909 Unspecified asthma, uncomplicated (principal); M79.7 Fibromyalgia; F32.9 Major depressive disorder, single episode, unspecified; F12.90 Cannabis use, unspecified, uncomplicated; Z87.891 Personal history of nicotine dependence; Z79.51 Long term (current) use of inhaled steroids; Z77.22 Contact with and (suspected) exposure to environmental tobacco smoke (acute) (chronic)
CPT/HCPCS: 71045; 99285

== ENCOUNTER 2020-12-02 11:05 | Emergency (ER) | payer OTHER ==
[2020-12-02 11:13] VITALS: TEMP 97.7
[2020-12-02] MEDS ORDERED: DEXAMETHASONE SOD PHOSPHATE 10 MG/ML 1 ML VIAL IM STA (12:12)
--- NOTE | 2020-12-02 12:24 | ED ---
SOB HPI - General Chief Complaint: Shortness of Breath Stated Complaint: Asthma Source: patient, EMS, RN notes reviewed Mode of arrival: EMS Limitations: no limitations - History of Present Illness Initial Comments: 30-year-old patient presents to the emergency room complaining of an asthma attack after exposed to citrus today. Patient goes by Luis Enrique and states that he called EMS for an asthma attack even to napping feels much better. Patient is out of albuterol and was told by primary care doctor may take 72 hours to refill. Patient oxygen saturation is 100% respiratory rate of 22 heart rate of 76 at this time. History of asthma and fibromyalgia mood disorders. Patient states was taken off his Singulair due to his mental state he states. Has not been on any maintenance medications for his asthma. MD Complaint: "asthma attack" -: hour(s) (1) Severity scale (1-10): 0 Consistency: now resolved (Given DuoNeb by EMS removed himself from citrus exposure) Known History Of: asthma Associated Symptoms: denies other symptoms Treatments Prior to Arrival: bronchodilator (DuoNeb) - Related Data Home Oxygen Therapy: No Previous Rx's Medication Instructions Recorded Albuterol Inhaler (Mhu) [Ventolin 1 - 2 puff INHALATION Q4HR PRN #1 07/08/18 Hfa Inhaler (Mhu)] inhaler Albuterol Nebulized [Ventolin 2.5 mg INHALATION Q4H PRN #25 nebu 03/31/20 Nebulized] Albuterol Sulfate [Proair Hfa] 1 - 2 puff INHALATION Q4H PRN 30 06/13/20 Days #1 inhaler Nicotine 14Mg/24Hr Patch [Habitrol] 1 patch TRANSDERM DAILY 30 Days 06/13/20 patch Venlafaxine HCl ER [Effexor XR] 150 mg PO DAILY 30 Days cap.er.24h 06/13/20 hydrOXYzine pamoate [Vistaril] 50 mg PO HS 30 Days cap 06/13/20 Albuterol Sulfate [Proair Hfa] 1 - 2 puff INHALATION Q4HR PRN #1 10/03/20 inhaler methylPREDNISolone [Medrol Dose 4 mg PO DIRECTED #1 pack 10/03/20 Pack] Albuterol Inhaler [Ventolin Hfa 2 puff INHALATION Q4HR PRN 30 Days 12/02/20 Inhaler] #1 inhaler predniSONE 50 mg PO DAILY #5 tab 12/02/20 Allergies Allergy/AdvReac Type Severity Reaction Status Date / Time [place] And Derivatives AdvReac Itching Verified 12/02/20 11:14 [[place]] mold AdvReac Itching Verified 10/03/20 17:34 pollen extracts AdvReac Itching Verified 10/03/20 17:34 Review of Systems ROS Statement: Those systems with pertinent positive or pertinent negative responses have been documented in the HPI. ROS Other: All systems not noted in ROS Statement are negative. Past Medical History Past Medical History: Asthma, Fibromyalgia History of Any Multi-Drug Resistant Organisms: None Reported Past Surgical History: Tonsillectomy Past Psychological History: Depression Smoking Status: Former smoker, Second hand smoke exposure Past Alcohol Use History: Occasional Past Drug Use History: Marijuana General Exam Limitations: no limitations General appearance: alert, in no apparent distress, anxious Head exam: Present: atraumatic, normocephalic, normal inspection Eye exam: Present: normal appearance, PERRL, EOMI. Absent: scleral icterus, conjunctival injection, periorbital swelling Pupils: Present: normal accommodation ENT exam: Present: normal exam, normal oropharynx, mucous membranes moist Neck exam: Present: normal inspection, full ROM. Absent: tenderness, meningismus, lymphadenopathy, thyromegaly Respiratory exam: Present: normal lung sounds bilaterally. Absent: respiratory distress, wheezes, rales, rhonchi, stridor, chest wall tenderness, accessory muscle use, decreased breath sounds Cardiovascular Exam: Present: regular rate, normal rhythm, normal heart sounds. Absent: systolic murmur, diastolic murmur, rubs, gallop, clicks GI/Abdominal exam: Present: soft, normal bowel sounds. Absent: distended, tenderness, guarding, rebound, rigid Extremities exam: Present: normal inspection, full ROM, normal capillary refill. Absent: tenderness, pedal edema, joint swelling, calf tenderness Back exam: Present: normal inspection, full ROM. Absent: tenderness, CVA tenderness (R), CVA tenderness (L), muscle spasm, paraspinal tenderness, vertebral tenderness Neurological exam: Present: alert, oriented X3, CN II-XII intact Psychiatric exam: Present: normal mood, anxious Skin exam: Present: warm, dry, intact, normal color, other (Multiple yellow brown bruises to bilateral lower extremities states from recent camping). Absent: rash Course Vital Signs 12/02/20 11:10 Temperature 97.7 F Pulse Rate 76 Respiratory 22 Rate Blood Pressure 103/65 O2 Sat by Pulse 100 Oximetry Medical Decision Making - Medical Decision Making Patient is well-appearing with in no acute distress relieved from asthma attack with DuoNeb by EMS. Patient will be treated with one dose Decadron and discharged home with albuterol inhaler. Oxygen saturation 100% respiratory rate of 22 heart rate of 76 patient is afebrile. Denies any shortness of breath or chest pain. No recent surgeries, no fevers, no calf pain. Patient states that this was an exposure to citrus which exacerbated his asthma but is now resolved. Patient will be prescribed an albuterol inhaler and prednisone for 5 days. Directed to follow up with primary care doctor next week. Return if worsening symptoms or shortness breath chest pain or fevers. Case discussed with Dr Lee. Disposition Clinical Impression: Asthma Disposition: HOME SELF-CARE Instructions (If sedation given, give patient instructions): Asthma (ED) Additional Instructions: Usual albuterol as needed, take the prednisone as prescribed. Follow-up with the primary care doctor for continuation of care and maintenance therapy for your asthma. Return to the emergency room if worsening shortness of breath, chest pain, or fever. Prescriptions: predniSONE 50 mg PO DAILY #5 tab Albuterol Inhaler [Ventolin Hfa Inhaler] 2 puff INHALATION Q4HR PRN 30 Days #1 inhaler PRN Reason: Wheezing Is patient prescribed a controlled substance at d/c from ED?: No Referrals: Anuel Mittal MD [Primary Care Provider] - 1-2 days Time of Disposition: 12:24
[2020-12-02 12:45] VITALS: BP 101/70; PULSE 67; RESP 20
== END 2020-12-02 13:06 | disposition home or self-care (01) ==
LOC: EC 11:05
DX: J45.909 Unspecified asthma, uncomplicated (principal); F32.9 Major depressive disorder, single episode, unspecified; M79.7 Fibromyalgia; F12.90 Cannabis use, unspecified, uncomplicated; Z87.891 Personal history of nicotine dependence; Z77.22 Contact with and (suspected) exposure to environmental tobacco smoke (acute) (chronic); Z79.51 Long term (current) use of inhaled steroids
CPT/HCPCS: 99285; 96372; J1100

== ENCOUNTER 2021-03-06 05:54 | Emergency (ER) | payer OTHER ==
[2021-03-06] MEDS ORDERED: IPRATROPIUM-ALBUTEROL 3 ML NEB INHALATION STA (06:13)
[2021-03-06 06:53] LABS: Basophils % (A) 0 %; Eosinophils # (A) 0.6 k/uL (0-0.7); Eosinophils % (A) 5 %; HCT 41.2 % (39.0-53.0); HGB 13.5 gm/dL (13.0-17.5); Lymphocytes # (A) 4.3 k/uL (1.0-4.8); Lymphocytes % (A) 35 %; MCH 31.5 pg (25.0-35.0); MCHC 32.7 g/dL (31.0-37.0); MCV 96.3 fL (80.0-100.0); Mean Platelet Volume 9.3; Monocytes # (A) 0.5 k/uL (0-1.0); Monocytes % (A) 4 %; Neutrophils # (A) 6.5 k/uL (1.3-7.7); Neutrophils % (A) 54 %; Platelet Count 252 k/uL (150-450); RBC 4.28 m/uL (4.30-5.90); RDW 12.3 % (11.5-15.5); WBC 12.1 k/uL (3.8-10.6)
[2021-03-06 07:04] LABS: Albumin 4.1 g/dL (3.5-5.0); Calcium 9.5 mg/dL (8.4-10.2); Potassium 4.1 mmol/L (3.5-5.1); Total Bilirubin 0.2 mg/dL (0.2-1.3); Total Protein 6.5 g/dL (6.3-8.2)
--- NOTE | 2021-03-06 07:16 | XR ---
EXAMINATION TYPE: XR chest 2V DATE OF EXAM: 03/06/2021 COMPARISON: Chest x-ray 10/03/2020 HISTORY: Difficulty breathing TECHNIQUE: Frontal and lateral views of the chest are obtained. FINDINGS: There is no focal air space opacity, pleural effusion, or pneumothorax seen. The cardiac silhouette size is within normal limits. The osseous structures are intact. IMPRESSION: No acute cardiopulmonary process.
[2021-03-06 07:30] VITALS: BP 108/77; PULSE 72; RESP 18; TEMP 97.5
[2021-03-06] MEDS ORDERED: ALBUTEROL HFA INHALER INHALATION STA (08:07)
--- NOTE | 2021-03-06 08:59 | ED ---
SOB HPI - General Chief Complaint: Shortness of Breath Stated Complaint: SAJAN Time Seen by Provider: 03/06/21 06:07 Source: patient, RN notes reviewed Mode of arrival: ambulatory Limitations: no limitations - History of Present Illness Initial Comments: Patient is a 30-year-old biologic female transitioning the male that presents to the emergency room complaining of an asthma exacerbation. He notes that they ran out of at home medications due to pharmacy and phone issues. They're unable to follow-up with primary care in time to get refills. They note that inhaler and DuoNeb treatments usually make him feel better. Patient was otherwise a well-appearing 30-year-old in no apparent distress or pain. Patient denied any chest pain headache nausea vomiting diarrhea constipation fever fatigue chills. - Related Data Previous Rx's Medication Instructions Recorded Albuterol Inhaler (Mhu) [Ventolin 1 - 2 puff INHALATION Q4HR PRN #1 07/08/18 Hfa Inhaler (Mhu)] inhaler Albuterol Nebulized [Ventolin 2.5 mg INHALATION Q4H PRN #25 nebu 03/31/20 Nebulized] Albuterol Sulfate [Proair Hfa] 1 - 2 puff INHALATION Q4H PRN 30 06/13/20 Days #1 inhaler Nicotine 14Mg/24Hr Patch [Habitrol] 1 patch TRANSDERM DAILY 30 Days 06/13/20 patch Venlafaxine HCl ER [Effexor XR] 150 mg PO DAILY 30 Days cap.er.24h 06/13/20 hydrOXYzine pamoate [Vistaril] 50 mg PO HS 30 Days cap 06/13/20 Albuterol Sulfate [Proair Hfa] 1 - 2 puff INHALATION Q4HR PRN #1 10/03/20 inhaler methylPREDNISolone [Medrol Dose 4 mg PO DIRECTED #1 pack 10/03/20 Pack] Albuterol Inhaler [Ventolin Hfa 2 puff INHALATION Q4HR PRN 30 Days 12/02/20 Inhaler] #1 inhaler predniSONE 50 mg PO DAILY #5 tab 12/02/20 Albuterol Sulfate [Albuterol 2 puff PO Q6H #8.5 gm 03/06/21 Sulfate Hfa] Allergies Allergy/AdvReac Type Severity Reaction Status Date / Time [place] And Derivatives AdvReac Itching Verified 03/06/21 06:06 [[place]] mold AdvReac Itching Verified 03/06/21 06:06 pollen extracts AdvReac Itching Verified 03/06/21 06:06 Review of Systems ROS Statement: Those systems with pertinent positive or pertinent negative responses have been documented in the HPI. ROS Other: All systems not noted in ROS Statement are negative. Past Medical History Past Medical History: Asthma, Fibromyalgia History of Any Multi-Drug Resistant Organisms: None Reported Past Surgical History: Tonsillectomy Past Psychological History: Depression Smoking Status: Former smoker, Second hand smoke exposure Past Alcohol Use History: Occasional Past Drug Use History: Marijuana General Exam Limitations: no limitations General appearance: alert, in no apparent distress Head exam: Present: atraumatic, normocephalic, normal inspection Eye exam: Present: normal appearance, PERRL, EOMI. Absent: scleral icterus, conjunctival injection, periorbital swelling ENT exam: Present: normal exam, mucous membranes moist Neck exam: Present: normal inspection Respiratory exam: Present: normal lung sounds bilaterally. Absent: respiratory distress, wheezes, rales, rhonchi, stridor Cardiovascular Exam: Present: regular rate, normal rhythm, normal heart sounds. Absent: systolic murmur, diastolic murmur, rubs, gallop, clicks GI/Abdominal exam: Present: soft, normal bowel sounds. Absent: distended, tenderness, guarding, rebound, rigid Extremities exam: Present: normal inspection, full ROM, normal capillary refill. Absent: tenderness, pedal edema, joint swelling, calf tenderness Neurological exam: Present: alert, oriented X3 Psychiatric exam: Present: normal affect, normal mood Skin exam: Present: warm, dry, intact, normal color. Absent: rash Course Vital Signs 03/06/21 03/06/21 03/06/21 06:03 07:28 08:51 Temperature 98.0 F 97.5 F Pulse Rate 92 72 Respiratory 20 18 Rate Blood Pressure 112/76 108/77 O2 Sat by Pulse 96 96 98 Oximetry Medical Decision Making - Medical Decision Making 30-year-old biologic female complaining of shortness of breath, history of asthma. Basic labs, chest x-ray, Covid test ordered. Labs unremarkable Covid test negative. Chest x-ray no acute card up on her process. Case discussed with Dr. Seymour, patient discharge home with follow-up primary care. Inhalers at the patient's pharmacy. - Lab Data Result diagrams: 03/06/21 06:27 03/06/21 06:27 Lab Results 03/06/21 03/06/21 03/06/21 Range/Units 06:27 06:27 06:27 WBC 12.1 H (3.8-10.6) k/uL RBC 4.28 L (4.30-5.90) m/uL Hgb 13.5 (13.0-17.5) gm/dL Hct 41.2 (39.0-53.0) % MCV 96.3 (80.0-100.0) fL MCH 31.5 (25.0-35.0) pg MCHC 32.7 (31.0-37.0) g/dL RDW 12.3 (11.5-15.5) % Plt Count 252 (150-450) k/uL MPV 9.3 Neutrophils % 54 % Lymphocytes % 35 % Monocytes % 4 % Eosinophils % 5 % Basophils % 0 % Neutrophils # 6.5 (1.3-7.7) k/uL Lymphocytes # 4.3 (1.0-4.8) k/uL Monocytes # 0.5 (0-1.0) k/uL Eosinophils # 0.6 (0-0.7) k/uL Basophils # 0.0 (0-0.2) k/uL Sodium 139 (137-145) mmol/L Potassium 4.1 (3.5-5.1) mmol/L Chloride 106 (98-107) mmol/L Carbon Dioxide 23 (22-30) mmol/L Anion Gap 10 mmol/L BUN 12 (9-20) mg/dL Creatinine 0.56 L (0.66-1.25) mg/dL Est GFR (CKD-EPI)AfAm 163 (>60 ml/min/1.73 sqM) Est GFR (CKD-EPI)NonAf 141 (>60 ml/min/1.73 sqM) Glucose 107 H (74-99) mg/dL Plasma Lactic Acid Kaden 1.4 (0.7-2.0) mmol/L Calcium 9.5 (8.4-10.2) mg/dL Total Bilirubin 0.2 (0.2-1.3) mg/dL AST 29 (17-59) U/L ALT 21 (4-49) U/L Alkaline Phosphatase 44 (38-126) U/L Total Protein 6.5 (6.3-8.2) g/dL Albumin 4.1 (3.5-5.0) g/dL Coronavirus (PCR) (Not Detectd) 03/06/21 Range/Units 06:27 WBC (3.8-10.6) k/uL RBC (4.30-5.90) m/uL Hgb (13.0-17.5) gm/dL Hct (39.0-53.0) % MCV (80.0-100.0) fL MCH (25.0-35.0) pg MCHC (31.0-37.0) g/dL RDW (11.5-15.5) % Plt Count (150-450) k/uL MPV Neutrophils % % Lymphocytes % % Monocytes % % Eosinophils % % Basophils % % Neutrophils # (1.3-7.7) k/uL Lymphocytes # (1.0-4.8) k/uL Monocytes # (0-1.0) k/uL Eosinophils # (0-0.7) k/uL Basophils # (0-0.2) k/uL Sodium (137-145) mmol/L Potassium (3.5-5.1) mmol/L Chloride (98-107) mmol/L Carbon Dioxide (22-30) mmol/L Anion Gap mmol/L BUN (9-20) mg/dL Creatinine (0.66-1.25) mg/dL Est GFR (CKD-EPI)AfAm (>60 ml/min/1.73 sqM) Est GFR (CKD-EPI)NonAf (>60 ml/min/1.73 sqM) Glucose (74-99) mg/dL Plasma Lactic Acid Kaden (0.7-2.0) mmol/L Calcium (8.4-10.2) mg/dL Total Bilirubin (0.2-1.3) mg/dL AST (17-59) U/L ALT (4-49) U/L Alkaline Phosphatase (38-126) U/L Total Protein (6.3-8.2) g/dL Albumin (3.5-5.0) g/dL Coronavirus (PCR) Not Detected (Not Detectd) - Radiology Data Radiology results: report reviewed, image reviewed Chest x-ray: No acute cardiopulmonary process. Disposition Clinical Impression: Asthma Disposition: HOME SELF-CARE Condition: Stable Instructions (If sedation given, give patient instructions): Asthma (ED) Additional Instructions: Please return to the Emergency Department if symptoms worsen or any other concerns. Follow-up with primary care 1-2 days. Use inhalers as prescribed. Prescriptions: Albuterol Sulfate [Albuterol Sulfate Hfa] 2 puff PO Q6H #8.5 gm Is patient prescribed a controlled substance at d/c from ED?: No Referrals: Anuel Mittal MD [Primary Care Provider] - 1-2 days Time of Disposition: 08:59
== END 2021-03-06 09:18 | disposition home or self-care (01) ==
LOC: EC 05:54
DX: J45.901 Unspecified asthma with (acute) exacerbation (principal); F32.9 Major depressive disorder, single episode, unspecified; F12.90 Cannabis use, unspecified, uncomplicated; Z20.822 Contact with and (suspected) exposure to COVID-19; Z90.89 Acquired absence of other organs; Z87.891 Personal history of nicotine dependence
CPT/HCPCS: 36415; 71046; 80053; 83605; 85025; 87635; 94640; 99285

== ENCOUNTER 2021-10-30 22:10 | Observation (INO) | payer OTHER ==
--- NOTE | 2021-10-30 22:29 | ED ---
Psych HPI - General Chief Complaint: Psychiatric Symptoms Stated Complaint: Mental Health Time Seen by Provider: 10/30/21 22:14 Source: patient, EMS, RN notes reviewed, old records reviewed Mode of arrival: EMS Limitations: no limitations - History of Present Illness Initial Comments: This is a 30-year-old female to the ER for evaluation. Patient is engender transition. Patient coming in for severe depression suicidal thoughts patient cranial currently a low triangle with roommates and is causing significant stress in her life MD Complaint: suicidal ideation, feels depressed, altered mental status -: days(s) Associated Psychiatric Symptoms: depression, suicidal ideation, racing thoughts Quality: constant, getting worse Improves With: none Worsens With: none Context: not taking psychiatric medications, significant life stressor Associated Symptoms: denies other symptoms Treatments Prior to Arrival: placed on mental health hold If Self Harm: admits thoughts of self harm - Related Data Previous Rx's Medication Instructions Recorded Albuterol Inhaler (Mhu) [Ventolin 1 - 2 puff INHALATION Q4HR PRN #1 07/08/18 Hfa Inhaler (Mhu)] inhaler Albuterol Nebulized [Ventolin 2.5 mg INHALATION Q4H PRN #25 nebu 03/31/20 Nebulized] Albuterol Sulfate [Proair Hfa] 1 - 2 puff INHALATION Q4H PRN 30 06/13/20 Days #1 inhaler Nicotine 14Mg/24Hr Patch [Habitrol] 1 patch TRANSDERM DAILY 30 Days 06/13/20 patch Venlafaxine HCl ER [Effexor XR] 150 mg PO DAILY 30 Days cap.er.24h 06/13/20 hydrOXYzine pamoate [Vistaril] 50 mg PO HS 30 Days cap 06/13/20 Albuterol Sulfate [Proair Hfa] 1 - 2 puff INHALATION Q4HR PRN #1 10/03/20 inhaler methylPREDNISolone [Medrol Dose 4 mg PO DIRECTED #1 pack 10/03/20 Pack] Albuterol Inhaler [Ventolin Hfa 2 puff INHALATION Q4HR PRN 30 Days 12/02/20 Inhaler] #1 inhaler predniSONE 50 mg PO DAILY #5 tab 12/02/20 Albuterol Sulfate [Albuterol 2 puff PO Q6H #8.5 gm 03/06/21 Sulfate Hfa] Allergies Allergy/AdvReac Type Severity Reaction Status Date / Time [place] And Derivatives AdvReac Itching Verified 10/28/21 01:50 [[place]] mold AdvReac Itching Verified 10/28/21 01:50 pollen extracts AdvReac Itching Verified 10/28/21 01:50 Review of Systems ROS Statement: Those systems with pertinent positive or pertinent negative responses have been documented in the HPI. ROS Other: All systems not noted in ROS Statement are negative. Past Medical History Past Medical History: Asthma, Fibromyalgia History of Any Multi-Drug Resistant Organisms: None Reported Past Surgical History: Tonsillectomy Past Psychological History: Depression Smoking Status: Former smoker, Second hand smoke exposure, [place] Past Alcohol Use History: Occasional Past Drug Use History: Marijuana General Exam General appearance: alert, in no apparent distress Head exam: Present: atraumatic, normocephalic, normal inspection Eye exam: Present: normal appearance, PERRL, EOMI. Absent: scleral icterus, conjunctival injection, periorbital swelling ENT exam: Present: normal exam, mucous membranes moist Neck exam: Present: normal inspection. Absent: tenderness, meningismus, lymphadenopathy Respiratory exam: Present: normal lung sounds bilaterally. Absent: respiratory distress, wheezes, rales, rhonchi, stridor Cardiovascular Exam: Present: regular rate, normal rhythm, normal heart sounds. Absent: systolic murmur, diastolic murmur, rubs, gallop, clicks GI/Abdominal exam: Present: soft, normal bowel sounds. Absent: distended, tenderness, guarding, rebound, rigid Extremities exam: Present: normal inspection, full ROM, normal capillary refill. Absent: tenderness, pedal edema, joint swelling, calf tenderness Back exam: Present: normal inspection Neurological exam: Present: alert, oriented X3, CN II-XII intact Psychiatric exam: Present: normal affect, normal mood Skin exam: Present: warm, dry, intact, normal color. Absent: rash Course Vital Signs 10/30/21 22:12 Temperature 99.9 F Pulse Rate 101 Respiratory 20 Rate Blood Pressure 114/83 O2 Sat by Pulse 95 Oximetry - Reevaluation(s) Reevaluation #1: 10/31/21 01:48 Medical record is reviewed Reevaluation #2: 10/31/21 01:48 Medical clear for psychiatric evaluation Reevaluation #3: 10/31/21 01:48 Patient does have positive coronavirus Medical Decision Making - Medical Decision Making 30 year coming in for coronavirus, patient will be admitted for coronavirus but mainly for suicidal ideation and psychiatric evaluation and treatment - Lab Data Lab Results 10/31/21 Range/Units 01:13 Coronavirus (PCR) Detected A (Not Detectd) Disposition Clinical Impression: Major depressive disorder, PTSD (post-traumatic stress disorder), Acute psychosis, Gender dysphoria, Suicidal ideation Disposition: ADMITTED IP TO THIS HOSP Condition: Fair Is patient prescribed a controlled substance at d/c from ED?: No Referrals: Anuel Mittal MD [Primary Care Provider] - 1-2 days
[2021-10-30] MEDS ORDERED: ACETAMINOPHEN TAB 500 MG TAB PO STA (23:09)
[2021-10-31] MEDS ORDERED: NALOXONE 0.4 MG/ML 1 ML VIAL IV PRN (01:49)
[2021-10-31] MEDS ORDERED: LORazepam 2 MG/ML INJ IV PRN (01:49)
[2021-10-31 02:21] LABS: Basophils # (A) 0.1 k/uL (0-0.2); Basophils % (A) 1 %; Eosinophils # (A) 0.2 k/uL (0-0.7); Eosinophils % (A) 2 %; HGB 14.2 gm/dL (13.0-17.5); Lymphocytes # (A) 3.6 k/uL (1.0-4.8); Lymphocytes % (A) 32 %; MCH 30.8 pg (25.0-35.0); MCHC 32.4 g/dL (31.0-37.0); MCV 95.3 fL (80.0-100.0); Mean Platelet Volume 8.9; Monocytes # (A) 0.4 k/uL (0-1.0); Monocytes % (A) 3 %; Neutrophils # (A) 6.9 k/uL (1.3-7.7); Neutrophils % (A) 62 %; Platelet Count 283 k/uL (150-450); RBC 4.61 m/uL (4.30-5.90); RDW 12.2 % (11.5-15.5); WBC 11.3 k/uL (3.8-10.6)
[2021-10-31 02:38] LABS: Amphetamine Screen,Urine Not Detected (NotDetected); Barbiturate Screen,Urine Not Detected (NotDetected); Benzodiazepines Screen,Urine Not Detected (NotDetected); Cocaine Screen,Urine Not Detected (NotDetected); Methadone Screen, Urine Not Detected (NotDetected); Opiate Screen,Urine Not Detected (NotDetected); Oxycodone Screen, Urine Not Detected (NotDetected); Phencyclidine Screen,Urine Not Detected (NotDetected); Tricyclic Antidepressant,Urine Not Detected (NotDetected); Urn Cannabinoid Scrn Detected (NotDetected)
[2021-10-31 02:42] LABS: Acetaminophen <10.0 ug/mL; African American GFR (CKD) 152 (>60 ml/min/1.73 sqM); Alcohol <10 mg/dL; Anion Gap 10 mmol/L; Blood Urea Nitrogen 6 mg/dL (9-20); Calcium 9.5 mg/dL (8.4-10.2); Carbon Dioxide 24 mmol/L (22-30); Chloride 106 mmol/L (98-107); Glucose 108 mg/dL (74-99); Non-African American GFR(CKD) 132 (>60 ml/min/1.73 sqM); Potassium 4.3 mmol/L (3.5-5.1); Salicylate <1.0 mg/dL; Sodium 140 mmol/L (137-145)
[2021-10-31] MEDS ORDERED: ALBUTEROL NEBULIZED 2.5 MG/3 ML INHALATION PRN (03:38)
[2021-10-31] MEDS ORDERED: ALBUTEROL 90 MCG INHALATION PRN (03:38)
--- NOTE | 2021-10-31 03:44 | P.HPIM ---
History of Present Illness H&P Date: 10/31/21 Chief Complaint: Suicidal ideation 30-year-old going through gender transition with history of asthma Patient comes in with suicidal ideation. Reports suicidal thoughts since age of 10 due to social stressors. Since childhood Patient has been exposed to confirmed cases of Covid about 2 weeks ago started having symptoms about 10 days ago and tested positive with a home kit about a week ago. Patient symptoms consist of chills body aches diarrhea and sore throat. Patient reports chronic cough due to exposure to smoke from roommates who are heavy smokers. Otherwise denies any GI bleeding denies any nausea vomiting abdominal pain changes in urinary habits Review of Systems Pertinent positives as noted in HPI. All other systems were reviewed and are negative Past Medical History Past Medical History: Asthma, Fibromyalgia History of Any Multi-Drug Resistant Organisms: None Reported Past Surgical History: Tonsillectomy Past Psychological History: Depression Smoking Status: Former smoker, Second hand smoke exposure, [place] Past Alcohol Use History: Occasional Past Drug Use History: Marijuana - Past Family History Family Family Medical History: No Reported History Medications and Allergies Home Medications Medication Instructions Recorded Confirmed Type Albuterol Inhaler (Mhu) [Ventolin 1 - 2 puff INHALATION Q4HR PRN #1 07/08/18 Rx Hfa Inhaler (Mhu)] inhaler Albuterol Nebulized [Ventolin 2.5 mg INHALATION Q4H PRN #25 nebu 03/31/20 Rx Nebulized] Albuterol Sulfate [Proair Hfa] 1 - 2 puff INHALATION Q4H PRN 30 06/13/20 Rx Days #1 inhaler Nicotine 14Mg/24Hr Patch [Habitrol] 1 patch TRANSDERM DAILY 30 Days 06/13/20 Rx patch Venlafaxine HCl ER [Effexor XR] 150 mg PO DAILY 30 Days cap.er.24h 06/13/20 Rx hydrOXYzine pamoate [Vistaril] 50 mg PO HS 30 Days cap 06/13/20 Rx Albuterol Sulfate [Proair Hfa] 1 - 2 puff INHALATION Q4HR PRN #1 10/03/20 Rx inhaler methylPREDNISolone [Medrol Dose 4 mg PO DIRECTED #1 pack 10/03/20 Rx Pack] Albuterol Inhaler [Ventolin Hfa 2 puff INHALATION Q4HR PRN 30 Days 12/02/20 Rx Inhaler] #1 inhaler predniSONE 50 mg PO DAILY #5 tab 12/02/20 Rx Albuterol Sulfate [Albuterol 2 puff PO Q6H #8.5 gm 03/06/21 Rx Sulfate Hfa] Allergies Allergy/AdvReac Type Severity Reaction Status Date / Time [place] And Derivatives AdvReac Itching Verified 10/28/21 01:50 [[place]] mold AdvReac Itching Verified 10/28/21 01:50 pollen extracts AdvReac Itching Verified 10/28/21 01:50 Physical Exam Vitals: Vital Signs Temp Pulse Resp BP Pulse Ox 10/31/21 01:59 98.6 F 10/30/21 22:12 99.9 F 101 20 114/83 95 Intake and Output 10/30/21 10/30/21 10/31/21 14:59 22:59 06:59 Other: Weight 66.224 kg Constitutional: No acute distress, conversant, pleasant Eyes: Anicteric sclerae, moist conjunctiva, Pupils equal round reactive to light ENMT: NC/AT Oropharynx clear, no erythema, or exudates Neck: Supple, FROM, no masses, or JVD No carotid bruits No thyromegaly Lungs: Clear to auscultation Clear to percussion Normal respiratory effort, no accessory muscle use Cardiovascular: Heart regular in rate and rhythm, No murmurs, gallops, or rubs No peripheral edema Abdominal: Soft Nontender, no guarding, rebound or rigidity Abdomen moving with respiration Normoactive bowel sounds No hepatomegaly, No splenomegaly No palpable mass No abdominal wall hernia noted Skin: Normal temperature, tone, texture, turgor No induration No subcutaneous nodules No rash, lesions No ulcers Extremities: No digital cyanosis No clubbing Pedal pulses intact and symmetrical Radial pulses intact and symmetrical No calf tenderness Psychiatric: Alert and oriented to person, place and time Appropriate affect fair judgement Neuro Muscles Strength 5/5 in all 4 extremities Sensation to light touch grossly present throughout Cranial nerves II-XII grossly intact No focal sensory deficits Lymphatics: no palpable cervical or supraclavicular , or inguinal lymph nodes Results CBC & Chem 7: 10/31/21 01:59 10/31/21 01:59 Labs: Abnormal Lab Results - Last 24 Hours (Table) 10/31/21 10/31/21 10/31/21 Range/Units 01:13 01:59 01:59 WBC 11.3 H (3.8-10.6) k/uL BUN (9-20) mg/dL Glucose (74-99) mg/dL U Marijuana (THC) Screen Detected H (NotDetected) Coronavirus (PCR) Detected A (Not Detectd) 10/31/21 Range/Units 01:59 WBC (3.8-10.6) k/uL BUN 6 L (9-20) mg/dL Glucose 108 H (74-99) mg/dL U Marijuana (THC) Screen (NotDetected) Coronavirus (PCR) (Not Detectd) Assessment and Plan Assessment: Depression and suicidal ideation Psych consultation Suicide precautions Bedside sitter for safety Covid positive Contact and droplet precautions Somatic controlled Loperamide for diarrhea History of asthma currently compensated Albuterol inhaler pRN for wheezing DVT prophylaxis Lovenox Full code Patient will stay less than 2 midnights
[2021-10-31] MEDS: ALBUTEROL HFA INHALER INHALATION PRN ×4 (07:09→21:03)
[2021-10-31] MEDS: ENOXAPARIN 40 MG/0.4 ML SYRINGE SQ SCH (08:07)
[2021-10-31] MEDS: LOPERAMIDE 2 MG CAP PO PRN (12:48)
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
--- NOTE | 2021-10-31 18:21 | P.PN ---
Subjective Progress Note Date: 10/31/21 (delayed charting seen at 1130 ) Principal diagnosis: depression This is a 30-year-old chronic female who identifies as male gender with history of chronic left shoulder pain, asthma, fibromyalgia, and autism spectrum disorder per the patient who was petitioned due to suicidal ideation. Patient was found to be covid positive and was subsequently admitted to the medical unit. Excoriation seen and examined at bedside. He does not want to talk about his mental health disorder. He reports that he had exposure 12 days ago 20 no Covid positive patient. He then developed symptoms 10 days ago on 10/21/21 and tested positive on a rapid antigen test. He has been fever free since admission at less than 100.4. Initially he was having significant amount of muscle aches, fevers, and chills. As well as diarrhea. The BEEN improving for the last several days. He does not want to take a probiotic as always "makes him worse". General: non toxic, no distress, appears at stated age Derm: warm, dry Head: atraumatic, normocephalic, symmetric Eyes: EOMI, no lid lag, anicteric sclera Mouth: no lip lesion, mucus membranes moist Cardiovascular: S1S2 reg, no murmur, positive posterior tibial pulse bilateral, Lungs: CTA bilateral, no rhonchi, no rales , no accessory muscle use Abdominal: soft, nontender to palpation, no guarding, no appreciable organomegaly Ext: no gross muscle atrophy, no edema, no contractures Neuro: CN II-XI grossly intact, no focal neuro deficits Psych: Alert, oriented, appropriate affect Assessment/plan: COVID-19 -Continue with supportive care -Imodium -Patient will be able to come out of Covid isolation on 11/01 after 10 days with improvement for over 3 days with 24 hours fever free. Depression, severe Cluster B personality disorder Cannabis use disorder Posttraumatic stress disorder -Transfer to psych in a.m. when patient is able to be removed from Covid Isolation Anticipate transfer to psych in a.m. if remains fever free. Objective - Vital Signs Vital signs: Vital Signs Temp 98.5 F 10/31/21 17:44 Pulse 75 10/31/21 17:44 Resp 18 10/31/21 17:44 BP 112/73 10/31/21 17:44 Pulse Ox 96 10/31/21 17:44 Intake & Output 10/30/21 10/31/21 10/31/21 18:59 06:59 18:59 Output Total 300 Balance -300 Weight 66.224 kg Output: Urine 300 Other: # Voids 1 9 # Bowel Movements 0 3 - Labs CBC & Chem 7: 10/31/21 01:59 10/31/21 01:59 Labs: Abnormal Lab Results - Last 24 Hours (Table) 10/31/21 10/31/21 10/31/21 Range/Units 01:13 01:59 01:59 WBC 11.3 H (3.8-10.6) k/uL BUN (9-20) mg/dL Glucose (74-99) mg/dL U Marijuana (THC) Screen Detected H (NotDetected) Coronavirus (PCR) Detected A (Not Detectd) 10/31/21 Range/Units 01:59 WBC (3.8-10.6) k/uL BUN 6 L (9-20) mg/dL Glucose 108 H (74-99) mg/dL U Marijuana (THC) Screen (NotDetected) Coronavirus (PCR) (Not Detectd)
[2021-10-31] MEDS: hydrOXYzine pamoate 25 MG CAP PO SCH (19:55)
[2021-10-31] MEDS: TOPIRAMATE 25 MG TAB PO SCH (19:55)
[2021-10-31] MEDS: BENZOCAINE/MENTHOL LOZENG 1 EACH LOZENGE MUCOUS MEM PRN (20:41)
[2021-11-01] MEDS: LOPERAMIDE 2 MG CAP PO PRN (02:31)
[2021-11-01] MEDS: ALBUTEROL HFA INHALER INHALATION PRN ×4 (09:12→20:14)
--- NOTE | 2021-11-01 09:21 | P.DS ---
Providers Date of admission: 10/31/21 01:46 Expected date of discharge: 11/01/21 Attending physician: Nicole Matos MD Consults: 10/31/21 10:52 Consult Physician Routine Consulting Provider: Isaac Brooks Consult Reason/Comments: suicidal ideation Do you want consulting provider notified?: Yes Primary care physician: Anuel Mittal MD Hospital Course: Discharge Diagnosis: COVID 19 URI Diarrhea related to above, resolved Major depressive disorder, recurrent, severe Posttraumatic stress disorder Cluster B personality disorder Cannabis use disorder Nicotine dependency Hospital Course: This is a 30-year-old gentic female who identifies as male gender with history of chronic left shoulder pain, asthma, fibromyalgia, and autism spectrum disorder per the patient who was petitioned due to suicidal ideation. Patient was found to be covid positive and was subsequently admitted to the medical unit. He was seen by psychiatry who recommended inpatient treatment. On 11/01/20 the patient is 10 days from diagnosis of COVID, he has been fever free for over 72 hours and has improvement in symptoms. Covera and isolation can be discontinued. Patient is medically optimized for discharge the mental health unit. Patient seen and examined at bedside. Reports that he is feeling well and rested. He is no longer having as much diarrhea and tolerating diet well this morning. Vital signs reviewed and stable. General: non toxic, no distress, appears at stated age Derm: warm, dry Head: atraumatic, normocephalic, symmetric Eyes: EOMI, no lid lag, anicteric sclera Mouth: no lip lesion, mucus membranes moist Cardiovascular: S1S2 reg, no murmur, positive posterior tibial pulse bilateral, Lungs: CTA bilateral, no rhonchi, no rales , no accessory muscle use Abdominal: soft, nontender to palpation, no guarding, no appreciable organomegaly Ext: no gross muscle atrophy, no edema, no contractures Neuro: CN II-XI grossly intact, no focal neuro deficits Psych: Alert, oriented, appropriate affect A total of 25 minutes of time were spent preparing this complex discharge summary . Patient Condition at Discharge: Fair Plan - Discharge Summary Discharge Rx Participant: Yes New Discharge Prescriptions: No Action Ascorbic Acid [Vitamin C] 500 mg PO DAILY Discharge Medication List Ascorbic Acid [Vitamin C] 500 mg PO DAILY 10/31/21 [History] Follow up Appointment(s)/Referral(s): Anuel Mittal MD [Primary Care Provider] - 1-2 days
[2021-11-01] MEDS: ENOXAPARIN 40 MG/0.4 ML SYRINGE SQ SCH (10:00)
[2021-11-01] MEDS: DESVENLAFAXINE SUCCINATE 50 MG TAB.ER.24H PO SCH (10:00)
[2021-11-01] MEDS: NICOTINE 7MG/24HR PATCH TRANSDERM SCH (10:00)
[2021-11-01] MEDS: hydrOXYzine pamoate 25 MG CAP PO SCH (20:32)
[2021-11-01] MEDS: BENZOCAINE/MENTHOL LOZENG 1 EACH LOZENGE MUCOUS MEM PRN (20:33)
[2021-11-01] MEDS: TOPIRAMATE 25 MG TAB PO SCH (20:33)
[2021-11-02] MEDS: ENOXAPARIN 40 MG/0.4 ML SYRINGE SQ SCH (08:20)
[2021-11-02] MEDS: NICOTINE 7MG/24HR PATCH TRANSDERM SCH (08:20)
[2021-11-02] MEDS: DESVENLAFAXINE SUCCINATE 50 MG TAB.ER.24H PO SCH (08:20)
[2021-11-02] MEDS: ALBUTEROL HFA INHALER INHALATION PRN ×3 (10:29→19:46)
--- NOTE | 2021-11-02 17:45 | P.PN ---
Subjective Progress Note Date: 11/02/21 (delayed charting seen at 1900) Principal diagnosis: depression This is a 30-year-old genetic female who identifies as male gender with history of chronic left shoulder pain, asthma, fibromyalgia, and autism spectrum disorder per the patient who was petitioned due to suicidal ideation. Patient was found to be COVID positive and was subsequently admitted to the medical unit. He has completed 10 days of COVID isolation and is cleared from isolation. Currently awaiting mental health unit. Patient seen and examined at bedside. Feeling better. Diarrhea is resolved. No nausea or vomiting. Feeling that mental health is better is currently from roommate. General: non toxic, no distress, appears at stated age Derm: warm, dry Head: atraumatic, normocephalic, symmetric Eyes: EOMI, no lid lag, anicteric sclera Mouth: no lip lesion, mucus membranes moist Cardiovascular: S1S2 reg, no murmur, positive posterior tibial pulse bilateral, Lungs: CTA bilateral, no rhonchi, no rales , no accessory muscle use Abdominal: soft, nontender to palpation, no guarding, no appreciable organomegaly Ext: no gross muscle atrophy, no edema, no contractures Neuro: CN II-XI grossly intact, no focal neuro deficits Psych: Alert, oriented, appropriate affect Assessment/plan: COVID-19 -Continue with supportive care -Imodium - cleared from COVID isolation Depression, severe Cluster B personality disorder Cannabis use disorder Posttraumatic stress disorder -- psych recs appreciated, requires inpatient psych, currently searching for bed. Active Medications Generic Name Dose Route Start Last Admin Trade Name Freq PRN Reason Stop Dose Admin Albuterol Sulfate 2 puff 10/31/21 03:43 11/02/21 16:00 Albuterol Hfa Inhaler INHALATION 2 puff RT-Q4H PRN Administration Shortness Of Breath Benzocaine/Menthol 1 each 10/31/21 20:07 11/01/21 20:33 Benzocaine/Menthol Lozeng 1 Each Lozenge MUCOUS MEM 1 each Q6HR PRN Administration Sore Throat Desvenlafaxine Succinate 50 mg 11/01/21 09:00 11/02/21 08:20 Desvenlafaxine Succinate 50 Mg Tab.Er.24h PO 50 mg DAILY KENYATTA Administration Enoxaparin Sodium 40 mg 10/31/21 09:00 11/02/21 08:20 Enoxaparin 40 Mg/0.4 Ml Syringe SQ 40 mg DAILY KENYATTA Administration Hydroxyzine Pamoate 50 mg 10/31/21 21:00 11/01/21 20:32 Hydroxyzine Pamoate 25 Mg Cap PO 50 mg HS KENYATTA Administration Loperamide HCl 2 mg 10/31/21 03:39 11/01/21 02:31 Loperamide 2 Mg Cap PO 2 mg QID PRN Administration Diarrhea Lorazepam 0.5 mg 10/31/21 01:49 Lorazepam 2 Mg/Ml Inj IV Q6HR PRN Anxiety Naloxone HCl 0.2 mg 10/31/21 01:49 Naloxone 0.4 Mg/Ml 1 Ml Vial IV Q2M PRN Opioid Reversal Nicotine 1 patch 11/01/21 09:30 11/02/21 08:20 Nicotine 7mg/24hr Patch TRANSDERM 1 patch DAILY KENYATTA Administration Topiramate 25 mg 10/31/21 21:00 11/01/21 20:33 Topiramate 25 Mg Tab PO 25 mg HS KENYATTA Administration Objective - Vital Signs Vital signs: Vital Signs Temp 97.5 F 11/02/21 14:00 Pulse 66 11/02/21 14:00 Resp 16 11/02/21 14:00 BP 89/59 11/02/21 14:00 Pulse Ox 98 11/02/21 14:00 Intake & Output 11/01/21 11/02/21 11/02/21 18:59 06:59 18:59 Other: Voiding Method Toilet # Voids 2 3 - Labs CBC & Chem 7: 10/31/21 01:59 10/31/21 01:59
[2021-11-02] MEDS: hydrOXYzine pamoate 25 MG CAP PO SCH (19:33)
[2021-11-02] MEDS: TOPIRAMATE 25 MG TAB PO SCH (19:35)
[2021-11-03 02:56] VITALS: RESP 16
[2021-11-03] MEDS: ALBUTEROL HFA INHALER INHALATION PRN ×2 (08:27→11:37)
[2021-11-03] MEDS: ENOXAPARIN 40 MG/0.4 ML SYRINGE SQ SCH (08:48)
[2021-11-03] MEDS: DESVENLAFAXINE SUCCINATE 50 MG TAB.ER.24H PO SCH (08:48)
[2021-11-03] MEDS: NICOTINE 7MG/24HR PATCH TRANSDERM SCH (08:48)
[2021-11-03 10:13] VITALS: BP 98/67; PULSE 78; TEMP 98.2
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
--- NOTE | 2021-11-03 12:21 | P.DS ---
Providers Date of admission: 10/31/21 01:46 Expected date of discharge: 11/03/21 Attending physician: Nicole Matos MD Consults: 10/31/21 10:52 Consult Physician Routine Consulting Provider: Isaac Brooks Consult Reason/Comments: suicidal ideation Do you want consulting provider notified?: Yes 11/02/21 15:14 Consult Physician Routine Consulting Provider: Isaac Brooks Consult Reason/Comments: hx of suicidal ideation Do you want consulting provider notified?: Yes Primary care physician: Anuel Mittal MD Hospital Course: Discharge Diagnosis: COVID 19 URI Diarrhea related to above, resolved Major depressive disorder, recurrent, severe Posttraumatic stress disorder Cluster B personality disorder Cannabis use disorder Nicotine dependency Hospital Course: This is a 30-year-old gentic female who identifies as male gender with history of chronic left shoulder pain, asthma, fibromyalgia, and autism spectrum disorder per the patient who was petitioned due to suicidal ideation. Patient was found to be covid positive and was subsequently admitted to the medical unit. He was seen by psychiatry who recommended inpatient treatment. On 11/01/20 the patient is 10 days from diagnosis of COVID, he has been fever free for over 72 hours and has improvement in symptoms. COVID isolation can be discontinued. Patient was stablazied on medications and improved. Suicidal ideation resolved and he was determined stable to discharge by psychiatry. Patient seen and examined at bedside. Reports that he is feeling well and rested. He is no longer having as much diarrhea and tolerating diet well this morning. Vital signs reviewed and stable. General: non toxic, no distress, appears at stated age Derm: warm, dry Head: atraumatic, normocephalic, symmetric Eyes: EOMI, no lid lag, anicteric sclera Mouth: no lip lesion, mucus membranes moist Cardiovascular: S1S2 reg, no murmur, positive posterior tibial pulse bilateral, Lungs: CTA bilateral, no rhonchi, no rales , no accessory muscle use Abdominal: soft, nontender to palpation, no guarding, no appreciable organomegaly Ext: no gross muscle atrophy, no edema, no contractures Neuro: CN II-XI grossly intact, no focal neuro deficits Psych: Alert, oriented, appropriate affect A total of 25 minutes of time were spent preparing this complex discharge summary . Patient Condition at Discharge: Fair Plan - Discharge Summary Discharge Rx Participant: Yes New Discharge Prescriptions: New hydrOXYzine pamoate [Vistaril] 50 mg PO HS #60 cap Topiramate [Topamax] 25 mg PO HS #30 tab Loperamide [Imodium] 2 mg PO QID PRN #30 cap PRN Reason: Diarrhea Albuterol Inhaler [Ventolin Hfa Inhaler] 2 puff INHALATION RT-Q4H PRN #1 each PRN Reason: Shortness Of Breath Desvenlafaxine Succinate [Pristiq ER] 50 mg PO DAILY #30 tab Discontinued Ascorbic Acid [Vitamin C] 500 mg PO DAILY Discharge Medication List Albuterol Inhaler [Ventolin Hfa Inhaler] 2 puff INHALATION RT-Q4H PRN #1 each 11/03/21 [Rx] Desvenlafaxine Succinate [Pristiq ER] 50 mg PO DAILY #30 tab 11/03/21 [Rx] Loperamide [Imodium] 2 mg PO QID PRN #30 cap 11/03/21 [Rx] Topiramate [Topamax] 25 mg PO HS #30 tab 11/03/21 [Rx] hydrOXYzine pamoate [Vistaril] 50 mg PO HS #60 cap 11/03/21 [Rx] Follow up Appointment(s)/Referral(s): Anuel Mittal MD [Primary Care Provider] - 1-2 days Activity/Diet/Wound Care/Special Instructions: Activity: as tolerated Diet: regular Special Instructions: Follow-up with your mental health care provider Discharge Disposition: HOME SELF-CARE
== END 2021-11-03 13:10 | disposition home or self-care (01) ==
LOC: EC 22:10 → 4SSUR 10-31 01:46
PROVIDERS: ADMIT Internal Medicine; ATTEND Internal Medicine
DX: F33.2 Major depressive disorder, recurrent severe without psychotic features (principal); U07.1 COVID-19; R45.851 Suicidal ideations; F60.9 Personality disorder, unspecified; F64.9 Gender identity disorder, unspecified; F84.0 Autistic disorder; F41.9 Anxiety disorder, unspecified; M79.7 Fibromyalgia; J45.909 Unspecified asthma, uncomplicated; F43.10 Post-traumatic stress disorder, unspecified; F23 Brief psychotic disorder; G89.29 Other chronic pain; M25.512 Pain in left shoulder; R19.7 Diarrhea, unspecified; F17.290 Nicotine dependence, other tobacco product, uncomplicated; Z91.018 Allergy to other foods; Z91.048 Other nonmedicinal substance allergy status; Z79.899 Other long term (current) drug therapy
CPT/HCPCS: 96372 ×4; 82075; 99285; 94640 ×8; 80048; 85025; 80306; 80143; 87635; 80179; G0378 ×4; G0480; S4990 ×3; J1650 ×4; 80320

== ENCOUNTER → 2021-11-20 | Outpatient (CLI) | payer OTHER ==
[2021-11-20 19:31] LABS: Basophils # (A) 0.03 X 10*3/uL (0.00-0.10); Basophils % (A) 0.3 %; Eosinophils # (A) 0.45 X 10*3/uL (0.04-0.35); Eosinophils % (A) 5.1 %; HCT 41.6 % (37.2-50.0); HGB 13.6 g/dL (12.0-17.0); Immature Grans, Automated 0.2 %; Lymphocytes # (A) 3.19 X 10*3/uL (0.90-5.00); MCH 30.7 pg (27.0-32.0); MCHC 32.7 g/dL (32.0-37.0); MCV 93.9 fL (80.0-97.0); Monocytes # (A) 0.45 X 10*3/uL (0.20-1.00); Monocytes % (A) 5.1 %; NRBC Per 100 WBC 0 /100 WBCS (0.0-0.0); Neutrophils # (A) 4.73 X 10*3/uL (1.80-7.70); Neutrophils % (A) 53.3 %; Platelet Count 289 X 10*3/uL (140-440); RBC 4.43 X 10*6/uL (4.10-5.60); RDW 12.4 % (11.5-14.5); WBC 8.87 X 10*3/uL (4.50-10.00)
[2021-11-20 19:35] LABS: ALT 26 U/L (8-48); AST 15 U/L (13-35); Albumin 4.4 g/dL (3.8-4.9); Albumin/Globulin Ratio 2.15 (1.60-3.17); Alkaline Phosphatase 61 U/L (41-126); Blood Urea Nitrogen 9.5 mg/dL (9.0-27.0); Calcium 9.4 mg/dL (8.7-10.3); Chloride 106 mmol/L (96-109); Chol/HDL Ratio 5.01 Ratio; Estradiol 43.9 pg/mL; Globulin 2.1 g/dL (1.6-3.3); Glucose 98 mg/dL (70-110); LDL Cholesterol,Calculated 143.9 mg/dL (0.0-131.0); Potassium 4.7 mmol/L (3.5-5.5); Sodium 138 mmol/L (135-145); Total Bilirubin <0.15 mg/dL (0.30-1.20); Total Protein 6.5 g/dL (6.2-8.2)
== END | disposition home or self-care (01) ==
LOC: LABWHC1 13:14
PROVIDERS: ATTEND Obstetrics & Gynecology
DX: F64.0 Transsexualism (principal)
CPT/HCPCS: 36415; 80053; 80061; 82627; 82670; 83036; 83498; 84403; 84443; 84481; 85025

== ENCOUNTER 2022-01-18 19:22 | Emergency (ER) | payer OTHER ==
[2022-01-18 19:31] VITALS: TEMP 98.1
--- NOTE | 2022-01-18 19:56 | ED ---
General Adult HPI - General Chief complaint: Psychiatric Symptoms Stated complaint: Mental health Time Seen by Provider: 01/18/22 19:36 Source: patient, RN notes reviewed Mode of arrival: ambulatory Limitations: no limitations - History of Present Illness Initial comments: Patient is a 31-year-old person presenting to the emergency department with concerns for mental health. Patient feels depressed and having thoughts of self-harm. Patient has plan to overdose taking all of the medications available. Patient was stopped by a friend on the phone. No hallucinations. Patient does use marijuana for chronic pain however denies other street drugs or alcohol. No homicidal thoughts. Patient has been having problems getting in to [facility]. - Related Data Home Medications Medication Instructions Recorded Confirmed Albuterol Nebulized [Ventolin 2.5 mg INHALATION RT-QID PRN 01/18/22 01/18/22 Nebulized] Albuterol Sulfate [Proair Hfa] 2 puff INHALATION RT-Q6H PRN 01/18/22 01/18/22 Loratadine [Claritin] 10 mg PO DAILY 01/18/22 01/18/22 Montelukast [Singulair] 10 mg PO DAILY 01/18/22 01/18/22 Trazodone Unknown Dose 1 tab PO HS 01/18/22 01/18/22 hydrOXYzine pamoate [Vistaril] 50 mg PO HS 01/18/22 01/18/22 Previous Rx's Medication Instructions Recorded Desvenlafaxine Succinate [Pristiq 50 mg PO DAILY #30 tab 11/03/21 ER] Allergies Allergy/AdvReac Type Severity Reaction Status Date / Time Heard And Derivatives AdvReac Itching Verified 01/18/22 21:06 [Heard] gabapentin AdvReac Unknown Verified 01/18/22 21:06 mold AdvReac Itching Verified 01/18/22 21:06 pollen extracts AdvReac Itching Verified 01/18/22 21:06 Review of Systems ROS Statement: Those systems with pertinent positive or pertinent negative responses have been documented in the HPI. ROS Other: All systems not noted in ROS Statement are negative. Constitutional: Denies: fever Eyes: Denies: eye pain ENT: Denies: ear pain Respiratory: Denies: cough Cardiovascular: Denies: chest pain Endocrine: Denies: fatigue Gastrointestinal: Denies: abdominal pain Genitourinary: Denies: dysuria Genitourinary: Denies: dysuria Musculoskeletal: Reports: other (Chronic pain) Skin: Denies: rash Past Medical History Past Medical History: Asthma, Fibromyalgia History of Any Multi-Drug Resistant Organisms: None Reported Past Surgical History: Tonsillectomy Past Psychological History: Depression Smoking Status: Vaper Past Alcohol Use History: Occasional Past Drug Use History: Marijuana - Past Family History Mother Additional Family Medical History / Comment(s): carrier of hemophilia B Family Family Medical History: No Reported History General Exam Limitations: no limitations General appearance: alert, in no apparent distress Head exam: Present: normocephalic Eye exam: Present: normal appearance Neck exam: Present: normal inspection Respiratory exam: Present: normal lung sounds bilaterally Cardiovascular Exam: Present: regular rate, normal rhythm Extremities exam: Present: normal inspection Neurological exam: Present: alert Psychiatric exam: Present: agitated, anxious Expanded Focused psych exam: Present: flight of ideas Skin exam: Present: normal color Course Vital Signs 01/18/22 19:26 Temperature 98.1 F Pulse Rate 86 Respiratory 16 Rate Blood Pressure 113/77 O2 Sat by Pulse 97 Oximetry Medical Decision Making - Medical Decision Making Patient was seen by mental health services with plans for admission or transfer. Disposition Clinical Impression: Depression, Suicidal ideation Disposition: TRANSFER TO PSYCH HOSP/UNIT Is patient prescribed a controlled substance at d/c from ED?: No Referrals: Nonstaff,Physician [Primary Care Provider] - 1-2 days Time of Disposition: 22:27
[2022-01-18] MEDS ORDERED: NICOTINE 14MG/24HR PATCH TRANSDERM STA (20:26)
[2022-01-18] MEDS ORDERED: HALOPERIDOL LACTATE 5 MG/ML 1 ML VIAL IM PRN (20:26)
[2022-01-18 22:50] LABS: Amphetamine Screen,Urine Not Detected (NotDetected); Barbiturate Screen,Urine Not Detected (NotDetected); Benzodiazepines Screen,Urine Not Detected (NotDetected); Cocaine Screen,Urine Not Detected (NotDetected); Methadone Screen, Urine Not Detected (NotDetected); Opiate Screen,Urine Not Detected (NotDetected); Oxycodone Screen, Urine Not Detected (NotDetected); Phencyclidine Screen,Urine Not Detected (NotDetected); Tricyclic Antidepressant,Urine Not Detected (NotDetected); Urn Cannabinoid Scrn Detected (NotDetected)
[2022-01-18] MEDS ORDERED: LORazepam 1 MG TAB PO PRN (22:57)
[2022-01-19 01:07] LABS: Appearance,Urine Cloudy (Clear); Bacteria,Urine Rare /hpf; Bilirubin,Urine Negative (Negative); Blood,Urine Negative (Negative); Color,Urine Light Yellow; Glucose,Urine (UA) Negative (Negative); Ketones,Urine Negative (Negative); Leukocyte Esterase,Urine Negative (Negative); Mucus,Urine Rare /hpf; Nitrite,Urine Negative (Negative); PH, Urine 5.5 (5.0-8.0); Protein,Urine Negative (Negative); RBC,Urine 1 /hpf (0-5); Specific Gravity,Urine 1.008 (1.001-1.035); Squamous Epithelial Cell,Urine 4 /hpf (0-4); Urobilinogen,Urine <2.0 mg/dL (<2.0); WBC,Urine 3 /hpf (0-5)
[2022-01-19 01:08] LABS: Basophils % (A) 0 %; Eosinophils # (A) 0.1 k/uL (0-0.7); Eosinophils % (A) 1 %; HCT 41.1 % (39.0-53.0); HGB 13.4 gm/dL (13.0-17.5); Lymphocytes # (A) 2.2 k/uL (1.0-4.8); Lymphocytes % (A) 16 %; MCH 31.2 pg (25.0-35.0); MCHC 32.6 g/dL (31.0-37.0); MCV 95.6 fL (80.0-100.0); Mean Platelet Volume 8.7; Monocytes # (A) 0.6 k/uL (0-1.0); Monocytes % (A) 4 %; Neutrophils # (A) 10.5 k/uL (1.3-7.7); Neutrophils % (A) 77 %; Platelet Count 253 k/uL (150-450); RDW 12.5 % (11.5-15.5); WBC 13.6 k/uL (3.8-10.6)
[2022-01-19 01:34] LABS: Albumin 4.3 g/dL (3.5-5.0); Calcium 9.1 mg/dL (8.4-10.2); Total Bilirubin 0.5 mg/dL (0.2-1.3); Total Protein 6.7 g/dL (6.3-8.2)
[2022-01-19 07:59] VITALS: BP 112/72; PULSE 72; RESP 18
== END 2022-01-19 08:05 ==
LOC: EC 19:22
DX: F32.A Depression, unspecified (principal); R45.851 Suicidal ideations; F12.10 Cannabis abuse, uncomplicated; J45.909 Unspecified asthma, uncomplicated; F17.209 Nicotine dependence, unspecified, with unspecified nicotine-induced disorders; Z79.51 Long term (current) use of inhaled steroids; Z91.018 Allergy to other foods; Z88.9 Allergy status to unspecified drugs, medicaments and biological substances; Z91.048 Other nonmedicinal substance allergy status
CPT/HCPCS: 82075; 80306; 99285; 96372; S4990; J1630; 36415; 80053; 81001; 85025; 87635